=== PATIENT | female | born 1960 | race Caucasian/White ===

== ENCOUNTER 2016-09-17 08:30 | Inpatient (IN) | payer MEDICARE ==
[2016-09-17 09:16] VITALS: BMI 26.9
--- NOTE | 2016-09-17 12:35 | HP ---
COWS - Scale Resting Pulse: 0= [place] 80 or Below Sweatin= Chills/Flushing Restless Observation: 3= Extraneous Movement Pupil Size: 2= Moderately Dilated Bone or Joint Aches: 4=Acute Joint/Muscle Pain Runny Nose/ Eye Tearin= Runny Nose/Eyes GI Upset > 30mins: 2= Nausea/Diarrhea (and constipation) Tremor Observation: 1= Tremor [place], Not Seen Yawning Observation: 1= 1-2x During Session Anxiety or Irritability: 2=Irritable/Anxious Goose Flesh Skin: 0=Smooth Skin COWS Score: 18 Admission ROS S - [facility] Chief Complaint: DETOX [place] FOR HEROIN DEPENDENCE Allergies/Adverse Reactions: Allergies Allergy/AdvReac Type Severity Reaction Status Date / Time No Known Allergies Allergy Verified 09/17/16 10:29 History of Present Illness: 56 Y/O H/FEMALE WITH A HX OF HEROIN AND MARIJUANA DEPENDENCE SEEKING DETOX [place]. FIRST TIME HERE. Exam Limitations: No Limitations - Ebola screening Have you traveled outside of the country in the last 21 days: No Have you had contact with anyone from an Ebola affected area: No Have you been sick,other than usual withdrawal symptoms: No Do you have a fever: No - Review of Systems Constitutional: Chills, Loss of Appetite, Night Sweats, Changes in sleep EENT: reports: Blurred Vision, Tearing, Recent change in vision ("I'VE BEEN SEEING BLURRY FOR PAST COUPLE OF MONTHS. IT MUST BE THE HEROIN"), Nose Congestion Respiratory: reports: Shortness of Breath (HX ASTHMA-MDI), Wheezing Cardiac: reports: Chest Pain (ESPECIALLY WHEN SMOKING CIGARRETES), Chest Tightness GI: reports: Constipated, Nausea, Poor Fluid Intake : reports: Dysuria Musculoskeletal: reports: Back Pain, Joint Pain, Muscle Pain Integumentary: reports: Dryness Neuro: reports: Headache, Numbness, Tingling (FINGER TIPS), Unsteady Gait Endocrine: reports: No Symptoms Reported Hematology: reports: Anemia ( A KID) Psychiatric: reports: Orientated x3, Anxious, Depressed Other Systems: Reviewed and Negative Patient History - Patient Medical History Hx Anemia: Yes ( A CHILD) Hx Asthma: Yes (MDI) Hx Chronic Obstructive Pulmonary Disease (COPD): No Hx Cardiac Disorders: No Hx Hypertension: No Hx Hypercholesterolemia: No HX Cerebrovascular Accident: No Hx Seizures: No Hx Diabetes: No Hx Gastrointestinal Disorders: No Hx Genitourinary Disorders: No Hx Sexually Transmitted Disorders: Yes (syphilis in the ) Hx Renal Disease (ESRD): No Hx Thyroid Disease: No Hx Human Immunodeficiency Virus (HIV): No (NEGATIVE) Hx Hepatitis C: No Hx Depression: Yes (ANXIETY--NO MEDS) Hx Suicide Attempt: No Hx Bipolar Disorder: Yes (NO CURRENT MEDS) Hx Schizophrenia: No - Patient Surgical History Past Surgical History: Yes Hx Neurologic Surgery: No Hx Cataract Extraction: No Hx Cardiac Surgery: No Hx Lung Surgery: No Hx Breast Surgery: No Hx Breast Biopsy: No Hx Abdominal Surgery: Yes (ovarian cyst removed at age 9 and 34) Hx Appendectomy: No Hx Cholecystectomy: No Hx Genitourinary Surgery: No Hx Section: No Hx Orthopedic Surgery: No Anesthesia Reaction: No - PPD History Previous Implant?: Yes Documented Results: Positive w/o proof Implanted On Prior [facility] Admission?: No PPD to be Administered?: No - Reproductive History Patient is a Female of Child Bearing Age (11 -55 yrs 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 History Hx Alcohol Use: Yes (SOCIALLY BUT NOT A PROBLEM) Hx Substance Use: Yes (HEROIN/MARIJUANA) Substance Use Type: Heroin, Marijuana Hx Substance Use Treatment: No (FIRST TIME IN [place]) - Substances Abused Heroin Route: Inhalation Frequency: Daily Amount used: 10 bags Age of first use: 55 Date of Last Use: 09/17/16 Marijuana Route: Smoking Frequency: Daily Amount used: 1 joint Age of first use: 13 Date of Last Use: 09/16/16 Family Disease History - Family Disease History Family Disease History: Other: Mother (HTN) Admission Physical Exam [facility] - Vital Signs Vital Signs: Vital Signs - 24 hr 09/17/16 09:13 Temperature 98.4 F Pulse Rate 66 Respiratory 18 Rate Blood Pressure 129/75 - Physical General Appearance: Yes: Moderate Distress, Irritable, Anxious HEENTM: Yes: EOMI, Normocephalic, KELLEN, Pharynx Normal, Nasal Congestion, Rhinorrhea Respiratory: Yes: Chest Non-Tender, Lungs Clear, Normal Breath Sounds, No Respiratory Distress Neck: Yes: No masses,lesions,Nodules, Supple, Trachea in good position Breast: Yes: Breast Exam Deferred Cardiology: Yes: Regular Rhythm, Regular Rate, S1, S2 Abdominal: Yes: Normal Bowel Sounds, Non Tender, Soft, Protuberent Genitourinary: Yes: Other (N/C) Musculoskeletal: Yes: full range of Motion, Gait Steady Extremities: Yes: Normal Range of Motion, Non-Tender Neurological: Yes: 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 NML intact, Fully Oriented, Alert Integumentary: Yes: Dry, Warm Lymphatic: Yes: Within Normal Limits - Diagnostic (1) Opioid dependence with withdrawal Current Visit: Yes Status: Acute (2) Cannabis dependence, uncomplicated Current Visit: Yes Status: Acute (3) Asthma Current Visit: Yes Status: Chronic Qualifiers: Asthma severity: mild intermittent Asthma complication type: uncomplicated Qualified Code(s): J45.20 - Mild intermittent asthma, uncomplicated Cleared for Admission [facility] - Detox or Rehab [facility] Level of Care: Medically Managed Detox Regimen/Protocol: Methadone [facility] Breath Alcohol Content Breath Alcohol Content: 0 Urine Pregancy Test - Result Urine Test Results: Negative- NO Line Present Urine Drug Screen - Results Drug Screen Negative: No Urine Drug Screen Results: THC-Marijuana, OPI-Opiates
[2016-09-17] MEDS ORDERED: diphenhydrAMINE HCL 50 MG CAPSULE PO PRN (12:51)
[2016-09-17] MEDS ORDERED: NICOTINE POLACRILEX 4 MG GUM BUC PRN (12:51)
[2016-09-17] MEDS ORDERED: guaiFENesin/D-METHORPHAN HB 10 ML UNIT-DOSE CUPS PO PRN (12:51)
[2016-09-17] MEDS ORDERED: hydrOXYzine PAMOATE 25 MG CAPSULE (FP) PO PRN (12:51)
[2016-09-17] MEDS ORDERED: MENTHOL/PHENOL 1 EACH UD MM PRN (12:51)
[2016-09-17] MEDS ORDERED: MAGNESIUM HYDROX 2400MG/30ML ORAL SUSPENSION 30 ML CUP PO PRN (12:51)
[2016-09-17] MEDS ORDERED: MAGNESIUM CITRATE 300 ML BOTTLE PO PRN (12:51)
[2016-09-17] MEDS ORDERED: ACETAMINOPHEN 325 MG TABLET (FP) PO PRN (12:51)
[2016-09-17] MEDS ORDERED: P-EPHED 60MG/TRIPROLIDI 2.5MG TABLET PO PRN (12:51)
[2016-09-17] MEDS ORDERED: MAG HYDROX/AL HYDROX/SIMETH 30 ML UNIT-DOSE CUP PO PRN (12:51)
[2016-09-17] MEDS ORDERED: LOPERAMIDE HCL 2 MG CAPSULE PO PRN (12:51)
[2016-09-17] MEDS ORDERED: diazePAM 5 MG TABLET PO PRN (12:51)
[2016-09-17] MEDS ORDERED: IBUPROFEN 400 MG TABLET (FP) PO PRN (12:51)
[2016-09-17] MEDS ORDERED: METHADONE HCL 10 MG TABLET (FOR DETOX USE ONLY) PO ONE ×2 (12:58→23:00)
[2016-09-17] MEDS ORDERED: NICOTINE 21 MG/24 HOURS TOPICAL PATCH TD SCH (13:00)
[2016-09-17 13:59] VITALS: BP 116/68; PULSE 68; TEMP 99.3
[2016-09-17 16:05] LABS: URINE APPEARANCE CLEAR; URINE BILIRUBIN NEGATIVE (NEGATIVE); URINE BLOOD NEGATIVE (NEGATIVE); URINE COLOR LTYELLOW; URINE GLUCOSE (UA) NEGATIVE (NEGATIVE); URINE KETONE NEGATIVE (NEGATIVE); URINE LEUK ESTERASE NEGATIVE (NEGATIVE); URINE NITRITE NEGATIVE (NEGATIVE); URINE PROTEIN NEGATIVE (NEGATIVE); URINE UROBILINOGEN NEGATIVE E.U./dl (0.2-1.0)
--- NOTE | 2016-09-17 16:54 | PN ---
S Progress Note Note: call by nurse,stated patient did not want to stay in the hospital,seen by counselor,signed release ama,did not want to wait
--- NOTE | 2016-09-17 16:58 | DS ---
[facility] Detox Discharge Summary Admission Date: 09/17/16 Discharge Date: 09/17/16 - History Present History: Cannabis Dependence, Opioid Dependence Additional Comments: patient did not want to complete treatment,signed release ama,did niot want to wait,seen by counselor Pertinent Past History: asthma - Physical Exam Results Vital Signs: Vital Signs Temperature 99.3 F 09/17/16 13:58 Pulse Rate 68 09/17/16 13:58 Respiratory Rate 18 09/17/16 13:58 Blood Pressure 116/68 09/17/16 13:58 O2 Sat by Pulse Oximetry (%) Pertinent Admission Physical Exam Findings: withdrawal symptom - Medication Discharge Medications: Ambulatory Orders Albuterol Sulfate Inhaler - [Ventolin Hfa Inhaler -] 2 inh PO Q4H PRN 09/17/16 - Diagnosis (1) Cannabis dependence, uncomplicated Current Visit: Yes Status: Acute (2) Opioid dependence with withdrawal Current Visit: Yes Status: Acute (3) Asthma Current Visit: Yes Status: Chronic Qualifiers: Asthma severity: mild intermittent Asthma complication type: uncomplicated Qualified Code(s): J45.20 - Mild intermittent asthma, uncomplicated - AMA Did Patient Leave Against Medical Advice: Yes
[2016-09-17] MEDS ORDERED: THIAMINE HCL 100 MG TABLET (FP) PO SCH (22:00)
[2016-09-18] MEDS ORDERED: METHADONE HCL 10 MG TABLET (FOR DETOX USE ONLY) PO ONE (10:00)
[2016-09-18] MEDS ORDERED: PRENATAL VITAMINS W/ FOLIC ACID TABLET (FP) PO SCH (10:00)
[2016-09-18] MEDS ORDERED: INFLUENZA VACCINE 45 MCG/0.5 ML (MDV 16-17) IM ONE (12:00)
--- NOTE | 2016-09-18 13:31 | EKG ---
Test Reason : Blood Pressure : / mmHG Vent. Rate : 061 BPM Atrial Rate : 061 BPM P-R Int : 136 ms QRS Dur : 088 ms QT Int : 414 ms P-R-T Axes : 042 040 044 degrees QTc Int : 416 ms NORMAL SINUS RHYTHM NONSPECIFIC T WAVE ABNORMALITY ABNORMAL ECG NO PREVIOUS ECGS AVAILABLE Confirmed by GO WALL, JEET ([id number]) on 09/18/2016 1:31:18 PM Referred By: Mark Yao Confirmed By:JEET STILES MD
[2016-09-19] MEDS ORDERED: METHADONE HCL 5 MG TABLET (FOR DETOX USE ONLY) PO ONE (10:00)
[2016-09-20] MEDS ORDERED: METHADONE HCL 5 MG TABLET (FOR DETOX USE ONLY) PO ONE (10:00)
[2016-09-21] MEDS ORDERED: METHADONE HCL 10 MG TABLET (FOR DETOX USE ONLY) PO ONE (10:00)
[2016-09-22] MEDS ORDERED: METHADONE HCL 5 MG TABLET (FOR DETOX USE ONLY) PO ONE (06:00)
== END 2016-09-17 16:35 | disposition left against medical advice (07) | DRG 770 ==
LOC: YASAS 08:30 → Y6N 11:37
PROVIDERS: ADMIT Internal Medicine; ATTEND Internal Medicine
PROC: HZ2ZZZZ Detoxification Services for Substance Abuse Treatment (ICD-10-PCS; principal; 2016-09-17)
DX: F11.23 Opioid dependence with withdrawal (principal); F14.20 Cocaine dependence, uncomplicated; J45.20 Mild intermittent asthma, uncomplicated
CPT/HCPCS: 81003; 93005; 93010

== ENCOUNTER 2017-10-08 10:04 | Emergency (ER) | payer OTHER ==
[2017-10-08 10:35] VITALS: BP 152/79; PULSE 72; TEMP 97.7; BMI 27.7
--- NOTE | 2017-10-08 12:04 | PDOC ---
History of Present Illness - General Chief Complaint: Back Pain Stated Complaint: BACK PAIN Time Seen by Provider: 10/08/17 11:58 History Source: Patient Exam Limitations: No Limitations - History of Present Illness Initial Comments: 10/08/17 came for evaluation of low back pain. States has had pain on and off for the past 2 years, uncertain as to cause of injury but had a slip and fall on the ice some time back. Has never been evaluated for pain, states his use Tylenol for pain relief. Denies numbness or tingling to hands or feet, denies any fever, denies any problems with bowel or bladder. Occurred: reports: yesterday Severity: reports: mild Pain Location: reports: back Loss of Consciousness: no loss of consciousness Associated Symptoms (Fall): denies symptoms, muscle spasms Past History - Travel Traveled outside of the country in the last 30 days: Yes Close contact w/someone who was outside of country & ill: Yes - Past Medical History Allergies/Adverse Reactions: Allergies Allergy/AdvReac Type Severity Reaction Status Date / Time No Known Allergies Allergy Verified 10/08/17 10:31 Home Medications: Ambulatory Orders Cyclobenzaprine HCl 10 mg PO Q8H PRN #14 tablet 10/08/17 Methadone [Dolophine -] 80 mg PO DAILY 10/08/17 Naproxen [Naprosyn -] 500 mg PO BID #14 tablet 10/08/17 Anemia: Yes ( A CHILD) Asthma: Yes (MDI) Cardiac Disorders: No CVA: No COPD: No Diabetes: No GI Disorders: No Disorders: No HTN: No Hypercholesterolemia: No Kidney Stones: No Seizures: No Thyroid Disease: No - Surgical History Abdominal Surgery: Yes (ovarian cyst removed at age 9 and 34) Appendectomy: No Cardiac Surgery: No Cholecystectomy: No Lung Surgery: No Neurologic Surgery: No Orthopedic Surgery: No - Reproductive History PID: No - Suicide/Smoking/Psychosocial Hx Smoking History: Current every day smoker Have you smoked in the past 12 months: Yes Number of Cigarettes Smoked Daily: 20 Information on smoking cessation initiated: Yes 'Breaking Loose' booklet given: 10/08/17 Hx Alcohol Use: Yes (SOCIALLY BUT NOT A PROBLEM) Drug/Substance Use Hx: Yes (HEROIN/MARIJUANA) Substance Use Type: Heroin, Marijuana Hx Substance Use Treatment: No (FIRST TIME IN [place]) Trauma Specific PMHX - Complaint Specific PMHX Arthritis: No Review of Systems - Review of Systems Able to Perform ROS?: Yes Is the patient limited Syriac proficient: Yes Constitutional: Yes: Symptoms Reported, See HPI, Malaise. No: Fever HEENTM: No: Symptoms Reported Respiratory: Yes: Symptoms reported : No: Symptoms Reported Musculoskeletal: Yes: Symptoms Reported, See HPI, Back Pain, Muscle Pain Integumentary: No: Symptoms Reported Neurological: Yes: Symptoms reported All Other Systems: Reviewed and Negative *Physical Exam - Vital Signs Last Vital Signs Temp Pulse Resp BP Pulse Ox 97.7 F 72 19 152/79 98 10/08/17 10:32 10/08/17 10:32 10/08/17 10:32 10/08/17 10:32 10/08/17 10:32 - Physical Exam General Appearance: Yes: Nourished, Appropriately Dressed, Apparent Distress, Mild Distress HEENT: positive: KELLEN, Normal ENT Inspection, TMs Normal, Pharynx Normal Neck: positive: Supple. negative: Tender, Lymphadenopathy (R), Lymphadenopathy (L) Respiratory/Chest: positive: Lungs Clear, Normal Breath Sounds Gastrointestinal/Abdominal: positive: Soft Musculoskeletal: positive: Normal Inspection, Muscle Spasm (mild tenderness and tension noted to the paravertebral spinous muscles worse on the left than the right, has no true spine tenderness crepitus or step-offs. Range of motion is limited the patient mildly anxious. She is a lesions noted, unable to perform leg raise test as patient has reproduced pain with walking and that movement.) Extremity: positive: Normal Capillary Refill. negative: Normal Range of Motion Integumentary: positive: Normal Color, Dry, Warm, Pale Neurologic: positive: tobacco stripper hand II-XII NML intact, Fully Oriented, Alert, Normal Mood/ Affect, Normal Response, Motor Strength 5/5 Progress Note - Progress Note Progress Note: Low back strain, will treat with NSAIDs and cyclobenzaprine *DC/Admit/Observation/Transfer Diagnosis at time of Disposition: Low back strain Qualifiers: Encounter type: initial encounter Qualified Code(s): S39.012A - Strain of muscle, fascia and tendon of lower back, initial encounter - Discharge Dispostion Disposition: HOME Condition at time of disposition: Stable Admit: No - Prescriptions Prescriptions: Cyclobenzaprine HCl 10 mg PO Q8H PRN #14 tablet PRN Reason: spasm Naproxen [Naprosyn -] 500 mg PO BID #14 tablet - Referrals - Patient Instructions Printed Discharge Instructions: DI for Back Strain or Sprain Additional Instructions: Rest, no heavy lifting or exercise until pain is resolved Hot soaks to neck and low back as often as possible/hot showers or Jacuzzis No massage or therapy until spasm is gone Continue ibuprofen 2-200 mg tablets every 6 hours for the next 3 days then as needed for pain and swelling Cyclobenzaprine 1-10mg every 8 hours as needed for spasm If not significant improvement within 24 hours with medication and rest regime, followup with private physician for change in medications and /or therapy. - Post Discharge Activity Forms/Work/School Notes: Back to Work
[2017-10-08] MEDS ORDERED: KETOROLAC TROMETHAMINE 60 MG/2 ML VIAL IM ONE (12:13)
[2017-10-08] MEDS ORDERED: KETOROLAC TROMETHAMINE 60 MG/2 ML VIAL ONE (12:17)
[2017-10-08 12:37] LABS: URINE APPEARANCE CLEAR; URINE BILIRUBIN NEGATIVE (NEGATIVE); URINE BLOOD NEGATIVE (NEGATIVE); URINE COLOR LTYELLOW; URINE GLUCOSE (UA) NEGATIVE (NEGATIVE); URINE KETONE NEGATIVE (NEGATIVE); URINE LEUK ESTERASE TRACE (NEGATIVE); URINE NITRITE NEGATIVE (NEGATIVE); URINE PROTEIN NEGATIVE (NEGATIVE); URINE UROBILINOGEN NEGATIVE mg/dL (0.2-1.0)
[2017-10-08 12:51] LABS: EPI CELLS RARE /HPF (FEW)
== END 2017-10-08 13:01 | disposition home or self-care (01) ==
LOC: JERFT 10:04
PROC: 3E0233Z Introduction of Anti-inflammatory into Muscle, Percutaneous Approach (ICD-10-PCS; principal; 2017-10-08)
DX: S39.012A Strain of muscle, fascia and tendon of lower back, initial encounter (principal); X58.XXXA Exposure to other specified factors, initial encounter; Y93.89 Activity, other specified; Y92.9 Unspecified place or not applicable; J45.909 Unspecified asthma, uncomplicated; F17.210 Nicotine dependence, cigarettes, uncomplicated
CPT/HCPCS: 81003; 81015; 87086; 99281-25

== ENCOUNTER 2019-02-01 10:48 | Emergency (ER) | payer SELFPAY, OTHER | END 2019-02-01 12:44 | disposition home or self-care (01) | LOC: JERFT 10:48 ==